=== PATIENT | female | born 1945 | race Caucasian/White ===

== ENCOUNTER 2018-08-29 10:44 | Inpatient (IN) ==
[2018-08-29] MEDS ORDERED: SOLU-MEDROL IV ONE (10:46)
[2018-08-29] MEDS ORDERED: DUONEB (A & A) INH ONE ×2 (10:46→11:11)
[2018-08-29 10:54] LABS: BLOOD TYPE ARTERIAL; HCO3-(ACT) 24.8 mmoll (20.0-26.0); METHB 0.5 % (0.0-1.5); O2(CT) 21.1 mL/dL (15.0-23.0); O2HB 95.2 % (95.0-99.0); PCO2(98.6) 43 mmHg (35-45); PO2(98.6) 89 mmHg (60-100); SAMPLE BLOOD; THB 15.7 g/dL (11.5-17.4); pH(98.6) 7.38 (7.35-7.45)
[2018-08-29 10:58] LABS: ALLEN TEST YES; MODALITY CANNULA
[2018-08-29 11:02] LABS: BASO# 0.04 X1000 (0.0-0.2); BASO% 0.6 % (0.0-0.8); EOS# 0.18 X1000 (0.0-0.7); EOS% 2.9 % (0.0-10.0); HEMATOCRIT 46.7 % (37.0-47.0); HEMOGLOBIN 15.5 g/dL (12.0-16.0); IMM GRAN# 0.01 X1000 (0.0-0.04); IMM GRAN% 0.2 % (0.0-0.5); LYMPH# 2.35 X1000 (1.2-3.4); MCH 32.6 PG (27-31); MCHC 33.2 g/dL (33-37); MCV 98.3 FL (81-99); MONO# 0.58 X1000 (0.11-0.59); MONO% 9.4 % (1.7-9.3); MPV 9.1 FL (7.4-10.4); NEUT# 3.02 X1000 (1.4-6.5); NEUT% 48.9 % (42.2-75.2); PLT 271 X1000 (130-400); RBC 4.75 XMIL (4.2-5.4); WBC 6.18 X1000 (4.8-10.8)
[2018-08-29 11:19] LABS: AGAP 16; ALBUMIN 4.7 g/dL (3.5-5.0); ALKALINE PHOSPHATASE 161 U/L (32-104); BUN 8 mg/dL (8-22); CALCIUM 10.1 mg/dL (8.8-10.2); CHLORIDE 99 mmol/L (98-107); COSMO 280; CREATININE 0.7 mg/dL (0.5-0.9); ESTIMATED GFR > 60; GLUCOSE 108 mg/dL (70-104); GOT 21 U/L (10-30); GPT 16 U/L (10-36); POTASSIUM 3.8 mmol/L (3.5-5.1); SODIUM 141 mmol/L (136-145); TCO2 26 mmol/L (25-35); TOTAL PROTEIN 9.6 g/dL (6.3-8.3)
--- NOTE | 2018-08-29 11:34 | PROVIDER DOCUMENTATION ---
This chart was entered by Nati Ibarra Scribe, acting as scribe for Lonnie Chase PA. HPI-Respiratory General - General Chief Complaint: Shortness of Breath Stated Complaint: sob Time Seen by Provider: 08/29/18 10:45 Source: patient, EMS Allergies/Adverse Reactions: Patient Allergies Allergy/AdvReac Type Severity Reaction Status Date / Time codeine Allergy Mild pain all Verified 02/04/17 18:07 over; "I THOUGHT I WAS GOING TO " Home Medications: Home Medication List Medication Instructions Recorded Confirmed Last Taken Type Alprazolam [Xanax] 0.25 mg PO DAILY PRN PRN 05/04/12 08/14/17 02/04/17 History Citalopram [Celexa] 40 mg PO DAILY 10/11/13 08/14/17 02/04/17 History Hydrocodone/APAP 5 mg/325 mg 1 each PO TID PRN 10/11/13 08/14/17 02/04/17 History [Weston-5] Lodine 500 mg PO BID 10/11/13 08/14/17 02/04/17 History ATORVAstatin [Lipitor] 20 mg PO HS #0 tablet 01/15/14 08/14/17 02/20/16 20:00 Rx Ropinirole [Requip] 1 mg PO QHS #0 tablet 01/15/14 08/14/17 1 Day Ago Rx ~02/03/17 Aspirin 81 mg PO BID 11/02/14 08/14/17 02/04/17 History Budesonide/Formoterol Fumarate 10.2 gm IH BID 11/02/14 08/14/17 02/04/17 History [Symbicort 160-4.5 Mcg Inhaler] Furosemide [Lasix] 40 mg PO DAILY 11/02/14 08/14/17 02/04/17 History Albuterol Sulfate [Ventolin] 5 mg IH DAILY 02/21/16 08/14/17 02/04/17 History Bupropion [Wellbutrin] 100 mg PO BID 02/21/16 08/14/17 02/04/17 History LISINOpril [Prinivil] 20 mg PO BID 02/21/16 08/14/17 02/04/17 History Losartan [Cozaar] 50 mg PO BID #60 tablet 06/30/16 08/14/17 Unknown Rx Carvedilol [Coreg] 25 mg PO BID 02/04/17 08/14/17 02/04/17 History Potassium Chloride [Klor-Con] 20 meq PO QAM 02/04/17 08/14/17 02/04/17 History Albuterol 2.5MG/Ipratrop 0.5MG 3 ml INH Q2-4H PRN PRN neb 08/17/17 Unknown Rx [Duoneb (A & A)] Azithromycin [Zithromax] 500 mg PO DAILY #3 tab 08/17/17 Unknown Rx CefDINIR [Omnicef] 300 mg PO BID #10 cap 08/17/17 Unknown Rx Methylprednisolone [Medrol Dosepak] 4 mg PO DIRECTED #1 pkg 08/17/17 Unknown Rx - History of Present Illness-Resp Nature of Presenting Problem: 72 y/o female presents to ED with SOB onset yesterday and acutely worsening just prior to arrival. Pt reports hx COPD and CHF. EMS states they administered 2 breathing treatments en route to ED. Pt is alert and oriented. Quality of Pain: reports: none Severity in ED: reports: severe Onset/Duration: reports: 24 hours ago Timing: reports: still present Context: reports: other (COPD/CHF) Exposure: reports: other (COPD/CHF) Cough Quality/Degree: reports: productive cough Episode Frequency: chronic episodes (COPD/CHF) Current Respiratory Medication Therapy: Initiated see nurses note Modifying Factors: improves with: nothing Associated Symptoms: reports: shortness of breath, short of breath Similar Symptoms Previously?: Yes Recently seen or treated by another doctor?: No Review of Systems - Adult - REVIEW OF SYSTEMS - ADULT Constitutional: denies: chills, fever Eyes: reports: no symptoms reported Ears, Nose, Mouth & Throat: reports: no symptoms reported Cardiovascular: denies: chest pain, palpitations Respiratory: reports: shortness of breath. denies: cough Gastrointestinal: denies: abdominal pain, diarrhea, nausea, vomiting Genitourinary: reports: no symptoms reported Musculoskeletal: denies: back pain, joint pain Integumentary: reports: no symptoms reported Neurological: denies: dizziness/vertigo, seizure Psychiatric: reports: no symptoms reported Endocrine: reports: no symptoms reported Hematologic/Lymphatic: reports: no symptoms reported Allergic/Immunologic: reports: no symptoms reported All Other Systems: Reviewed and Negative Past History - Adult - PAST MEDICAL HISTORY-ADULT Review of Records: reports: Old Records Reviewed, Nursing Assessment Review, Medications Reviewed Major Childhood Illnesses: reports: denies history Cardiovascular: reports: CAD, CHF, HTN, [place], pacemaker Respiratory: reports: COPD Gastrointestinal: reports: GERD Obstetrical/Gynecological: reports: denies history Genitourinary: reports: denies history Musculoskeletal: reports: denies history Neurological: reports: denies history Endocrine/Immune: reports: denies history Other Conditions: reports: denies history - PRIOR SURGERIES/PROCEDURES Surgical/Procedure History: reports: cholecystectomy, pacemaker, hysterectomy - IMMUNIZATION STATUS Childhood Immunizations: See Nurse Assessment Flu Vaccine: See Nurse Assessment - FAMILY HISTORY Family History: reviewed, not pertinent - SOCIAL HISTORY Smoking: less than 1 pack/day Provider spent 3-5 mins advising pt. on dangers of tobacco.: Discussed manners to quit use, and f/u contacts for add'l counseling. Substance Use: none/never Alcohol Use Frequency: never Living Situation: family Physical Exam-General - PHYSICAL EXAM-ADULT Initial Vital Signs Reviewed: Yes - CONSTITUTIONAL General Appearance: appears well, alert, no apparent distress - EYES Eyes: PERRL/EOMI, pink conjunctivae - HEAD, EARS, NOSE, MOUTH & THROAT HENMT: normocephalic/atraumatic, moist mucous membranes, normal ENT inspection - NECK Neck: non-tender, full range of motion - RESPIRATORY Respiratory: chest non-tender, rhonchi, wheezing - CARDIOVASCULAR Cardiovascular: normal peripheral pulses, regular rate, rhythm - GASTROINTESTINAL (ABDOMEN) Abdominal Exam: normal bowel sounds, non tender, soft - MUSCULOSKELETAL Back Exam: normal inspection, no CVA tenderness Extremity: normal range of motion, non-tender, normal gait - SKIN Integumentary: normal color, warm/dry - NEUROLOGIC Neurologic: grossly normal - PSYCHIATRIC Psych/Mental Status: normal mood/affect, normal thought content, normal thought process Progress - PLAN OF CARE/RESULTS Progress/Plan/Lab Results: Vital Signs - 8 hr 08/29/18 10:45 08/29/18 11:09 Temperature 98 F Pulse Rate 91 H 78 Respiratory Rate 22 22 Blood Pressure 180/121 164/109 O2 Sat by Pulse Oximetry 96 96 Laboratory Results - last 24 hr 08/29/18 08/29/18 08/29/18 10:28 10:50 10:50 WBC 6.18 RBC 4.75 Hgb 15.5 Hct 46.7 MCV 98.3 MCH 32.6 H MCHC 33.2 RDW Std Deviation 14.0 Plt Count 271 MPV 9.1 Immature Gran % (Auto) 0.2 Neut % (Auto) 48.9 Lymph % (Auto) 38.0 Cowley % (Auto) 9.4 H Eos % (Auto) 2.9 Baso % (Auto) 0.6 Immature Gran # (Auto) 0.01 Neut # (Auto) 3.02 Lymph # (Auto) 2.35 Cowley # (Auto) 0.58 Eos # (Auto) 0.18 Baso # (Auto) 0.04 Specimen Type ARTERIAL Sample Site R RADIAL pH 7.38 pCO2 43 pO2 89 HCO3 24.8 Base Excess 0.0 Oxyhemoglobin 95.2 ABG O2 Sat (Calculated) 21.1 ABG O2 Saturation 97.0 ABG Carboxyhemoglobin 1.40 ABG Methemoglobin 0.5 Lit Test YES A-a O2 Difference 114.0 Total Hemoglobin 15.7 Lactate 1.30 Liter Flow 4.0 Blood Gas Modality CANNULA FiO2 % 36.0 Sodium 141 Potassium 3.8 Chloride 99 Carbon Dioxide 26 Anion Gap 16 BUN 8 Creatinine 0.7 Estimated GFR/1.73 m2 > 60 BUN/Creatinine Ratio 11 Glucose 108 H Calculated Osmolality 280 Calcium 10.1 Total Bilirubin 0.40 AST 21 ALT 16 Alkaline Phosphatase 161 H Bic-U-Puyyovssnkf Pept Total Protein 9.6 H Albumin 4.7 Globulin 5.0 Albumin/Globulin Ratio 1.0 08/29/18 10:50 WBC RBC Hgb Hct MCV MCH MCHC RDW Std Deviation Plt Count MPV Immature Gran % (Auto) Neut % (Auto) Lymph % (Auto) Cowley % (Auto) Eos % (Auto) Baso % (Auto) Immature Gran # (Auto) Neut # (Auto) Lymph # (Auto) Cowley # (Auto) Eos # (Auto) Baso # (Auto) Specimen Type Sample Site pH pCO2 pO2 HCO3 Base Excess Oxyhemoglobin ABG O2 Sat (Calculated) ABG O2 Saturation ABG Carboxyhemoglobin ABG Methemoglobin Lit Test A-a O2 Difference Total Hemoglobin Lactate Liter Flow Blood Gas Modality FiO2 % Sodium Potassium Chloride Carbon Dioxide Anion Gap BUN Creatinine Estimated GFR/1.73 m2 BUN/Creatinine Ratio Glucose Calculated Osmolality Calcium Total Bilirubin AST ALT Alkaline Phosphatase Sgy-A-Fgngxgshebn Pept 1590 H Total Protein Albumin Globulin Albumin/Globulin Ratio Orders Category Date Time Status Saline Loc NOW Care 08/29/18 10:45 Completed CHEST-PORTABLE [RAD] Stat Exams 08/29/18 10:46 Taken ABG [RESP] Routine Lab 08/29/18 10:28 Completed CBC WITH DIFF [HEME] Stat Lab 08/29/18 10:50 Completed COMPREHENSIVE METABOLIC PANEL [CHEM] Stat Lab 08/29/18 10:50 Completed PRO B-NATRIURETIC PEPTIDE Stat Lab 08/29/18 10:50 Completed Albuterol 2.5MG/Ipratrop 0.5MG [Duoneb (A & A)] Med 08/29/18 10:46 Discontinued 3 ml INH NOW ONE Albuterol 2.5MG/Ipratrop 0.5MG [Duoneb (A & A)] Med 08/29/18 11:11 Discontinued 3 ml INH NOW ONE Methylprednisolone Sod Succ [Solu-Medrol] Med 08/29/18 10:46 Discontinued 60 mg IV NOW ONE Aerosol Treatments Routine Oth 08/29/18 10:46 Active Aerosol Treatments Routine Oth 08/29/18 11:12 Active Aerosol Treatments Stat Oth 08/29/18 10:46 Active Aerosol Treatments Stat Oth 08/29/18 11:12 Active EKG [EKG] Stat Ther 08/29/18 10:45 Ordered Result Diagrams: 08/29/18 10:50 08/29/18 10:50 - REASSESSMENT Reassessment #1 Time Reassessed: 11:33 Status: improving - CONSULTS/PCP/HOSPITALIST Notification #1 *Consult/PCP/Hospitalist*: Dr. Ennis Time Discussed: 11:11 Reason/Comments: COPD exacerbation Consult Disposition: Admit Departure - Departure Date of Disposition Decision: 08/29/18 Time of Disposition Decision: 11:11 DIAGNOSIS: COPD exacerbation, Tobacco abuse disorder Disposition: ADMITTED INPATIENT 09 Certified Medical Emergency: Emergent Condition: Stable Additional Freetext Instructions: ED Follow Up Instructions: You have been treated by a care provider in the Emergency Department. These instructions are being provided to you so you can have an understanding of how to care for yourself upon discharge. Upon discharge from the Emergency Department, you are responsible for making arrangements for follow-up care by a physician of your choice. Take all prescribed medications as directed. Return to the Emergency Department immediately for any new or worsening symptoms. You may call the Physician Referral phone number at [phone] to obtain a list of Physicians who are taking new patients. Discharge Education: Chronic Obstructive Pulmonary Disease Exacerbation, Easy- to-Read, Steps to Quit Smoking, [id number] - Critical Care Note This patient required my direct & personal management of CC.: No Attestation - Physician/ JACOB Attestation Patient care was provided by Advanced Practice Provider:: Yes Advanced Practice Provider:: Lonnie Chase Advanced Practice Provider documentation review:: The Mid-level provider documentation, treatment plan and medical decision making was reviewed by the physician who agrees with all treatment and medical decision making by the MLP. The physician spent face to face time with patient:: No Advanced Practice Provider documentation review:: Supervising physician onsite and consulted in the evaluation and care of this patient. The physician did not have a face to face encounter with the patient. This chart was documented by the indicated scribe, (Nati Ibarra Scribe) and accurately reflects the services I performed and decisions made by me, Lonnie Chase PA, as attested by the provider's signature.
--- NOTE | 2018-08-29 15:03 | Diag Imaging Result Doc PS360 ---
EXAM: CHEST-PORTABLE INDICATION: SOB TECHNIQUE: One view COMPARISON: 12/25/2017 FINDINGS: The lungs appear somewhat hyperinflated suggesting likely COPD, stable. The lungs are grossly clear. There is no discrete pleural fluid collection or pneumothorax. The cardiomediastinal silhouette and central vasculature are grossly unremarkable. The pacemaker/defibrillator is in stable position. IMPRESSION: Suggestion of likely COPD. No definite acute chest pathology. Electronically signed by Thom Horton 08/29/2018 3:00 PM
[2018-08-29] MEDS ORDERED: DUONEB (A & A) INH SCH (15:30)
[2018-08-29] MEDS: LASIX IV ONE ×2 (16:15→18:18)
[2018-08-29] MEDS ORDERED: MORPHINE IV PRN (18:02)
[2018-08-29] MEDS ORDERED: APRESOLINE IV PRN (18:17)
[2018-08-29] MEDS: DUONEB (A & A) INH SCH ×3 (18:26→22:54)
[2018-08-29] MEDS ORDERED: MORPHINE ONE (18:36)
--- NOTE | 2018-08-29 18:36 | HISTORY AND PHYSICAL ---
PRIMARY CARE PHYSICIAN: Dr. Griffith. CHIEF COMPLAINT: Shortness of breath. HISTORY OF PRESENTING ILLNESS: This is a 72-year-old female who presents to [facility] ER via EMS with complaints of shortness of breath that worsened yesterday and continued to worsen through this morning. When EMS arrived they gave her 2 breathing treatments en route to the emergency department. When she arrived to the emergency room she was saturating 96% on nasal cannula, her blood pressure was elevated at 180/121, she is now on a Venturi mask at oxygen flow rate of 8 saturating 91%. She has wheezing throughout her entire lung klein. Her chest x-ray is pending so she is being admitted for further evaluation and treatment. PAST MEDICAL HISTORY: COPD, CAD, hypertension, GERD, CHF. PAST SURGICAL HISTORY: Of a cholecystectomy, pacemaker and hysterectomy. FAMILY HISTORY: Reviewed and noncontributory. SOCIAL HISTORY: She currently lives with her daughter smokes 2 to 3 cigarettes a day has been a smoker for 50 years, denies any alcohol or illicit drug use. ALLERGIES: Codeine. HOME MEDICATIONS: A current list will need to be obtained and reviewed. I will place an order for nursing to update and confirm home medication and then we will restart as appropriate. LABORATORY DATA: Showed a white blood cell count of 6.18, hemoglobin 15.5, hematocrit 46.7, platelets 271,000. ABG showed a pH of 7.38, pCO2 43, PO2 89, bicarb 24.8 and that was on 4 L via nasal cannula. Sodium of 141, potassium 3.8, chloride 99, CO2 26, BUN of 8, creatinine 0.7, glucose 108, proBNP of 1590. Chest x-ray is pending. REVIEW OF SYSTEMS: She denied any fever, chills, blurred vision, dizziness, chest pain. She has had a nonproductive cough, shortness of breath. Denies any abdominal pain, constipation, diarrhea, burning or hurting with urination. PHYSICAL EXAMINATION: On arrival she had a temperature of 98 degrees, pulse 91, respirations 22, blood pressure was 180/121, saturating 96% on 4 L via nasal cannula, blood pressure currently is down to 164/109 but she saturating 91% on a 8 flow rate Venturi mask. GENERAL: This is a 72-year-old female who is sitting up in the bed answers questions appropriately but becomes very short of breath with 2 to 3 word sentences. HEENT: Normocephalic, atraumatic. Normal ENT inspection. Oropharynx and nares are clear. Pupils are equal, round, reactive to light and accommodation. Extraocular movements are intact. NECK: Normal inspection, normal range of motion. LUNGS: With wheezing throughout entire posterior lung klein, equal lung expansion, chest wall movement noted. O2 via Venturi mask in use at this time. HEART: Regular rate and rhythm. No murmurs, rubs, or gallops. ABDOMEN: Soft, nontender, nondistended. Bowel sounds are present x4 quadrants. MUSCULOSKELETAL: She has 5/5 strength x4 extremities. NEUROLOGICAL: The cranial nerves 2-12 appear grossly intact. ASSESSMENT: 1. An acute chronic obstructive pulmonary disease exacerbation. 2. Accelerated hypertension. 3. Gastroesophageal reflux disease. 4. Tobacco abuse. PLAN: She is being admitted to the medical unit, placed on telemetry, O2 per protocol, place on DuoNeb q.4 hours, Solu-Medrol 80 mg IV q.8, Rocephin 1 gram IV q.24, azithromycin 500 IV q.24., will do incentive spirometry, will need to have nursing update and confirm home medications and then we will review and restart as appropriate and will recheck a CBC, BMP in the a.m. Discussed smoking cessation with this patient who verbalizes understanding. Further orders after being seen by attending. Dictated by CHAD Deras for Anna Ennis MD cc: MD Anna Cano MD
[2018-08-29 18:53] LABS: BILIRUBIN URINE NEGATIVE (NEGATIVE); BLOOD URINE 1+ (NEGATIVE); CLARITY CLEAR (CLEAR); COLOR YELLOW; GLUCOSE URINE NEGATIVE (NEGATIVE); KETONE URINE 3+(Large) mg/dL (NEGATIVE); LEUKOCYTES URINE TRACE (NEGATIVE); NITRITE URINE NEGATIVE (NEGATIVE); PH URINE 6.5; UROBILINOGEN URINE NORMAL
[2018-08-29 18:54] LABS: URINE BACTERIA 1+ /HFP; URINE CAST NONE SEEN /LPF; URINE CRYSTAL NONE SEEN /HPF; URINE EPITHELIAL CELLS <10 /HPF (<10); URINE RBC <10 /HPF (<10); URINE SOURCE CATH; URINE WBC <10 /HPF (<10); URINE YEAST NONE SEEN /HPF
[2018-08-29] MEDS: ROCEPHIN 1 GM in NS 50 ML IV SCH (20:09)
[2018-08-29] MEDS: SOLU-MEDROL IV SCH (20:10)
[2018-08-29] MEDS: ZITHROMAX 500 MG/NS 500 MG/250 ML IVPB IV SCH (21:02)
[2018-08-29] MEDS: ZOFRAN IV PRN (22:26)
--- NOTE | 2018-08-29 23:52 | HISTORY AND PHYSICAL ---
ADDENDUM: The patient was personally seen by me face to face, and I fully agree with the assessment and plan of nurse practitioner, Elisabet Copeland. The patient presented to the emergency room with dyspnea and has been having wheezing. She is having acute COPD exacerbation, and her chest x-ray did not show any pneumonia. She will be given IV Solu-Medrol along with albuterol and Atrovent nebulization treatments. Furthermore, I am going to give her a dose of furosemide 40 mg IV to improve her fluid status and therefore to see if her breathing will get any better. She will be given ceftriaxone along with azithromycin intravenously for any associated bacterial infection. We will continue with her routine home medications and follow the hospital course. cc: Anna Ennis MD
[2018-08-30] MEDS: DUONEB (A & A) INH SCH ×6 (03:19→22:21)
[2018-08-30] MEDS: SOLU-MEDROL IV SCH ×3 (03:53→17:31)
--- NOTE | 2018-08-30 05:33 | EKG Report ---
Test Performed on : 08/29/2018 8:35:46 PM Test Reason : CP Blood Pressure : / mmHG Vent. Rate : 088 BPM Atrial Rate : 088 BPM P-R Int : 170 ms QRS Dur : 088 ms QT Int : 458 ms P-R-T Axes : 079 007 075 degrees QTc Int : 554 ms Normal sinus rhythm. Anteroseptal infarct (cited on or before 13-JAN-2014) Abnormal ECG When compared with ECG of 13-AUG-2017 16:26, Questionable change in initial forces of Anterior leads Nonspecific T wave abnormality no longer evident in Inferior leads T wave inversion no longer evident in Anterior leads QT has lengthened Confirmed by Lul Grossman MD ([id number]) on 09/13/2018 9:55:29 AM
[2018-08-30 06:37] LABS: BASO# 0.01 X1000 (0.0-0.2); BASO% 0.2 % (0.0-0.8); HEMATOCRIT 38.8 % (37.0-47.0); HEMOGLOBIN 12.8 g/dL (12.0-16.0); IMM GRAN# 0.01 X1000 (0.0-0.04); IMM GRAN% 0.2 % (0.0-0.5); LYMPH# 0.69 X1000 (1.2-3.4); MCH 32.8 PG (27-31); MCV 99.5 FL (81-99); MONO# 0.22 X1000 (0.11-0.59); MONO% 4.1 % (1.7-9.3); MPV 9.1 FL (7.4-10.4); NEUT# 4.38 X1000 (1.4-6.5); NEUT% 82.5 % (42.2-75.2); PLT 250 X1000 (130-400); RDW 14.1 % (11.5-14.5); WBC 5.31 X1000 (4.8-10.8)
[2018-08-30 06:53] LABS: AGAP 15; BUN 18 mg/dL (8-22); CALCIUM 9.1 mg/dL (8.8-10.2); CHLORIDE 100 mmol/L (98-107); COSMO 286; CREATININE 0.8 mg/dL (0.5-0.9); ESTIMATED GFR > 60; GLUCOSE 154 mg/dL (70-104); POTASSIUM 3.9 mmol/L (3.5-5.1); SODIUM 141 mmol/L (136-145); TCO2 26 mmol/L (25-35)
--- NOTE | 2018-08-30 12:35 | PROGRESS NOTE ---
DATE: 08/30/2018 SUBJECTIVE: Patient feels much better this morning. She still has some dyspnea, however. OBJECTIVE: Vital Signs: Temperature 97.6 degrees, pulse 79 per minute, respiratory rate 18 per minute, blood pressure 134/93, pulse oximetry 96% on 8 L of oxygen via Venturi mask. Cardiovascular System: First and second heart sounds are audible without any murmurs or gallops. Respiratory System: Bilateral lung air entry is moderately decreased with moderate expiratory wheezing present bilaterally on auscultation. Wheezing has significantly improved as compared to yesterday, however. Gastrointestinal: Abdomen is soft and nondistended. It is nontender on palpation. Normal bowel sounds are present. DIAGNOSTIC DATA: CBC is nondiagnostic. Basic metabolic panel showed glucose level of 154. Rest of the BMP was nondiagnostic. IMPRESSIONS: 1. Acute chronic obstructive pulmonary disease exacerbation. 2. Hypertension. 3. Dyslipidemia. PLAN: The patient's condition has significantly improved since yesterday. She will continue with methylprednisolone along with ceftriaxone and azithromycin intravenously. She will also continue with albuterol and Atrovent nebulization treatments and will also keep on giving her morphine sulfate 2 mg IV q.4 hours as needed for dyspnea and anxiety. She will be discharged on her routine home medications including Entresto, carvedilol, atorvastatin, and furosemide. Further recommendations will be given as per hospital course. cc: Anna Ennis MD
[2018-08-30] MEDS: LEXAPRO PO SCH (13:04)
[2018-08-30] MEDS: LASIX PO SCH (13:04)
[2018-08-30] MEDS: MORPHINE IV PRN ×2 (13:04→21:20)
[2018-08-30] MEDS: ROCEPHIN 1 GM in NS 50 ML IV SCH (21:05)
[2018-08-30] MEDS: NEURONTIN PO SCH (21:06)
[2018-08-30] MEDS: ZITHROMAX 500 MG/NS 500 MG/250 ML IVPB IV SCH (21:06)
[2018-08-30] MEDS: LIPITOR PO SCH (21:06)
[2018-08-30] MEDS: ENTRESTO 24 MG-26 MG TABLET PO SCH (21:06)
[2018-08-30] MEDS: COREG PO SCH (21:06)
[2018-08-31] MEDS: DUONEB (A & A) INH SCH ×6 (03:12→23:15)
[2018-08-31] MEDS: SOLU-MEDROL IV SCH ×3 (03:13→18:22)
[2018-08-31] MEDS: LEXAPRO PO SCH (09:41)
[2018-08-31] MEDS: NEURONTIN PO SCH ×2 (09:42→21:21)
[2018-08-31] MEDS: LASIX PO SCH (09:42)
[2018-08-31] MEDS: COREG PO SCH ×2 (09:42→21:21)
--- NOTE | 2018-08-31 09:47 | PROGRESS NOTE ---
DATE: 08/31/2018 SUBJECTIVE: The patient denies having any acute complaints this morning and feels much better as compared to yesterday. OBJECTIVE: Vital Signs: Temperature 97.3 degrees, pulse 61 per minute, respiratory rate 16 per minute, blood pressure 130/73, pulse oximetry 100% on 3 L of oxygen via nasal cannula. General: Patient is alert and oriented x3. She does not appear to be in any acute distress. Cardiovascular System: First and second heart sounds are audible without any murmurs or gallops. Respiratory System: Bilateral lung air entry is moderately decreased with bilateral expiratory wheezing present on auscultation, although, it has significantly improved as compared to yesterday. Gastrointestinal: Abdomen is soft and nondistended. It is nontender on palpation and normal bowel sounds are present. DIAGNOSTIC DATA: No new labs have been done. IMPRESSION: 1. Acute chronic obstructive pulmonary disease exacerbation. 2. Hypertension. 3. Dyslipidemia. PLAN: The patient's condition has significantly improved. She will continue with IV methylprednisolone along with ceftriaxone and azithromycin. She will also continue with bronchodilators via nebulization, and we keep her on morphine sulfate on as-needed basis for improvement of her dyspnea and anxiety. Her blood pressure has remained stable, and she will continue on her routine home medications. I believe she will be able to be discharged home in the next 1 to 2 days, if continues to improve the way she has been. cc: Anna Ennis MD
[2018-08-31] MEDS: MORPHINE IV PRN ×2 (09:53→18:29)
[2018-08-31] MEDS: ENTRESTO 24 MG-26 MG TABLET PO SCH ×2 (12:30→21:21)
[2018-08-31] MEDS: ROCEPHIN 1 GM in NS 50 ML IV SCH (21:18)
[2018-08-31] MEDS: LIPITOR PO SCH (21:21)
[2018-08-31] MEDS: ZITHROMAX PO SCH (21:21)
[2018-09-01] MEDS: SOLU-MEDROL IV SCH ×3 (01:56→20:57)
[2018-09-01] MEDS: DUONEB (A & A) INH SCH ×6 (03:23→23:00)
[2018-09-01] MEDS: COREG PO SCH ×2 (10:06→20:55)
[2018-09-01] MEDS: ENTRESTO 24 MG-26 MG TABLET PO SCH ×2 (10:06→22:35)
[2018-09-01] MEDS: LEXAPRO PO SCH (10:07)
[2018-09-01] MEDS: MORPHINE IV PRN ×2 (10:07→21:00)
[2018-09-01] MEDS: NEURONTIN PO SCH ×2 (10:07→20:54)
[2018-09-01] MEDS: LASIX PO SCH (10:08)
--- NOTE | 2018-09-01 11:32 | PROGRESS NOTE ---
DATE: 09/01/2018 SUBJECTIVE: Patient reports breathing better, but is still mildly short of breath. Reports not able to walk around yet. OBJECTIVE: Vital Signs: Temperature 98.0 degrees, heart rate 66, respiratory rate 18, blood pressure 104/72, O2 saturation 95% on 3 L nasal cannula. General examination: This is a 72-year- old female, lying in bed in no acute distress. Cardiovascular exam: S1, S2 heard. No murmurs, gallops, or rubs. Regular rate and rhythm. Respiratory exam: Clear bilaterally to auscultation. No work of breathing or using accessory muscles. Abdomen: Soft. Wheezing and coarse breath sounds in both pulmonary klein. Decreased breath sounds globally as well. The patient is not using any accessory muscles or having work of breathing. Abdomen: Soft, nontender to palpation. Bowel sounds present. No organomegaly. Extremities: No clubbing, cyanosis, or edema. Peripheral pulses present in both legs. Neurological exam: Patient is alert and oriented x3. Moves 4 extremities. LABORATORY DATA: None. ASSESSMENT AND PLAN: 1. Acute chronic obstructive pulmonary disease exacerbation. We will continue with DuoNeb every 4 hours as scheduled. Will add Spiriva to her current treatment, but considering that she has been on 3 days of high dose of Solu-Medrol 80 mg intravenous every 8 hours. We are going to wean off to 40 mg every 12 hours and we will go from there. We will add also Protonix to her current treatment considering that she is receiving high doses of steroids. 2. Hypertension. Blood pressure is under control. We will continue with the same medications. 3. Dyslipidemia. Will continue with home medications. We will continue with home medications. 4. Disposition: I think this patient will need to stay here probably at least a couple days more. We will continue with the same medications. cc: Andrew Quintana MD
[2018-09-01] MEDS: PROTONIX IV SCH (13:12)
[2018-09-01] MEDS: SODIUM CHLORIDE 0.9% INJ SCH (13:12)
[2018-09-01] MEDS: SPIRIVA INH SCH (15:16)
[2018-09-01] MEDS: ZITHROMAX PO SCH (20:54)
[2018-09-01] MEDS: ROCEPHIN 1 GM in NS 50 ML IV SCH (20:54)
[2018-09-01] MEDS: LIPITOR PO SCH (20:55)
[2018-09-02] MEDS: SOLU-MEDROL IV SCH ×2 (02:17→13:49)
[2018-09-02] MEDS: DUONEB (A & A) INH SCH ×6 (02:32→23:14)
[2018-09-02 06:20] LABS: HEMATOCRIT 37.3 % (37.0-47.0); HEMOGLOBIN 11.9 g/dL (12.0-16.0); IMM GRAN# 0.04 X1000 (0.0-0.04); IMM GRAN% 0.5 % (0.0-0.5); LYMPH# 1.16 X1000 (1.2-3.4); LYMPH% 15.9 % (20.5-51.1); MCH 31.9 PG (27-31); MCHC 31.9 g/dL (33-37); MONO# 0.38 X1000 (0.11-0.59); MONO% 5.2 % (1.7-9.3); MPV 9.3 FL (7.4-10.4); NEUT% 78.4 % (42.2-75.2); PLT 212 X1000 (130-400); RBC 3.73 XMIL (4.2-5.4); RDW 13.7 % (11.5-14.5); WBC 7.28 X1000 (4.8-10.8)
[2018-09-02 06:27] LABS: AGAP 8; BUN 30 mg/dL (8-22); CALCIUM 8.8 mg/dL (8.8-10.2); CHLORIDE 98 mmol/L (98-107); COSMO 282; CREATININE 0.7 mg/dL (0.5-0.9); ESTIMATED GFR > 60; GLUCOSE 107 mg/dL (70-104); POTASSIUM 4.1 mmol/L (3.5-5.1); SODIUM 138 mmol/L (136-145); TCO2 32 mmol/L (25-35)
[2018-09-02] MEDS: SPIRIVA INH SCH (08:06)
[2018-09-02] MEDS: NEURONTIN PO SCH ×2 (09:24→20:02)
[2018-09-02] MEDS: LEXAPRO PO SCH (09:24)
[2018-09-02] MEDS: MORPHINE IV PRN ×2 (09:24→19:38)
[2018-09-02] MEDS: COREG PO SCH ×2 (09:25→20:01)
[2018-09-02] MEDS: LASIX PO SCH (09:25)
[2018-09-02] MEDS: ENTRESTO 24 MG-26 MG TABLET PO SCH ×2 (09:25→20:01)
--- NOTE | 2018-09-02 11:33 | PROGRESS NOTE ---
DATE: 09/02/2018 SUBJECTIVE: The patient reports breathing a little bit better. The patient reports getting short of breath while she was walking with physical therapy. OBJECTIVE: Vital Signs: Temperature is 97.7 degrees, heart rate 72, respiratory rate 20, blood pressure 158/98, O2 saturation 94% on 2 L nasal cannula. General Examination: This is a 72-year- old, female lying in bed, in no acute distress. Cardiovascular Examination: S1 and S2 heard. No murmurs, gallops, or rubs. Regular rate and rhythm. Respiratory Examination: Mild wheezing and coarse breath sounds in both pulmonary bases. Patient is not using any accessory muscles or having work of breathing. Abdomen: Soft, nontender to palpation. Bowel sounds present. No organomegaly. Extremities: No clubbing, cyanosis, or edema. Peripheral pulses present in both legs. Neurological Examination: The patient is alert and oriented x3. Moves 4 extremities. Laboratory Data: CBC and BMP unremarkable. ASSESSMENT AND PLAN: 1. Acute chronic obstructive pulmonary disease exacerbation. Patient is on DuoNebs every 4 hours as scheduled because. She was not responding completely, we added Spiriva to her current treatment yesterday and she reported breathing a little bit better. The patient reports getting short of breath while she is working with physical therapy. She was encouraged to continue working with them. We had reduced Solu-Medrol yesterday to 40 mg intravenous every 12 hours. I think at discharge, she will be prescribed a Medrol Dosepak. We will continue also with Protonix while this patient is on steroids. 2. Hypertension. Blood pressure is under control. We will continue with the same management. 3. Dyslipidemia. We will continue home medications. 4. Physical deconditioning. Physical therapy has been consulted and working with this patient. 5. Disposition. I talked with the patient and she would really like to go home instead of going to rehab. We will see what physical therapy has to say. Patient encouraged to continue working with them. cc: Andrew Quintana MD
[2018-09-02] MEDS: PROTONIX IV SCH (13:49)
[2018-09-02] MEDS: SODIUM CHLORIDE 0.9% INJ SCH (13:49)
[2018-09-02] MEDS: ROCEPHIN 1 GM in NS 50 ML IV SCH (19:41)
[2018-09-02] MEDS: LIPITOR PO SCH (20:01)
[2018-09-02] MEDS: ZITHROMAX PO SCH (20:02)
[2018-09-03] MEDS: SOLU-MEDROL IV SCH ×3 (02:28→13:54)
[2018-09-03] MEDS: DUONEB (A & A) INH SCH ×6 (04:04→23:05)
[2018-09-03 06:57] LABS: BASO# 0.01 X1000 (0.0-0.2); BASO% 0.2 % (0.0-0.8); HEMATOCRIT 38.7 % (37.0-47.0); HEMOGLOBIN 12.4 g/dL (12.0-16.0); IMM GRAN# 0.02 X1000 (0.0-0.04); IMM GRAN% 0.3 % (0.0-0.5); LYMPH# 1.01 X1000 (1.2-3.4); MONO# 0.29 X1000 (0.11-0.59); MONO% 4.6 % (1.7-9.3); MPV 9.7 FL (7.4-10.4); NEUT# 4.99 X1000 (1.4-6.5); NEUT% 78.9 % (42.2-75.2); PLT 182 X1000 (130-400); RBC 3.87 XMIL (4.2-5.4); RDW 13.5 % (11.5-14.5); WBC 6.32 X1000 (4.8-10.8)
[2018-09-03 07:16] LABS: AGAP 9; BUN 31 mg/dL (8-22); CALCIUM 9.1 mg/dL (8.8-10.2); CHLORIDE 96 mmol/L (98-107); COSMO 282; CREATININE 0.7 mg/dL (0.5-0.9); ESTIMATED GFR > 60; GLUCOSE 126 mg/dL (70-104); SODIUM 137 mmol/L (136-145); TCO2 32 mmol/L (25-35)
[2018-09-03] MEDS: SPIRIVA INH SCH (07:20)
[2018-09-03] MEDS: LEXAPRO PO SCH (09:35)
[2018-09-03] MEDS: COREG PO SCH ×2 (09:35→21:18)
[2018-09-03] MEDS: ENTRESTO 24 MG-26 MG TABLET PO SCH ×2 (09:36→20:57)
[2018-09-03] MEDS: NEURONTIN PO SCH ×2 (09:36→20:57)
[2018-09-03] MEDS: LASIX PO SCH (09:36)
[2018-09-03] MEDS: PROTONIX IV SCH ×2 (09:36→11:12)
[2018-09-03] MEDS: MORPHINE IV PRN ×2 (09:36→20:57)
--- NOTE | 2018-09-03 14:31 | PROGRESS NOTE ---
DATE: 09/03/2018 SUBJECTIVE: Patient reports she had been working with physical therapy, although she gets a little bit short of breath. Denies any other complaints. OBJECTIVE: Vital Signs: Temperature 97.6 degrees, heart rate 76, respiratory rate 18, blood pressure 112/75, O2 saturation 96% on 4 L nasal cannula. General Examination: This is a chronically ill-looking, 72-year old female, lying in bed in no acute distress. HEENT: Head is normocephalic, atraumatic. Cardiovascular exam: S1, S2 heard. No murmurs, gallops, or rubs. Regular rate and rhythm. Respiratory exam: Mild wheezing and coarse breath sounds noted in both pulmonary bases. Patient is not using any accessory muscles or having work of breathing. Abdomen: Soft, nontender to palpation, nondistended. No signs of peritoneal irritation. Bowel sounds present. No organomegaly. Extremities: No clubbing, cyanosis, or edema. Peripheral pulses present in both legs. Neurological exam: Patient alert and oriented x3. Moves 4 extremities. LABORATORY DATA: CBC and BMP unremarkable with glucose a little bit elevated at 126. ASSESSMENT AND PLAN: 1. Acute chronic obstructive pulmonary disease exacerbation. The patient is on DuoNebs every 4 hours scheduled and also intravenous steroids as well. Spiriva has been added two days ago to her current treatment. At this point, she said that she is working with physical therapy feeling less short of breath. We have reduced the doses of Solu-Medrol to 40 mg intravenous every 12 hours. We will continue with the same management. 2. Hypertension. Blood pressure is under control. We will continue with the same medication. 3. Dyslipidemia. Patient is on home medications. We will continue with the same. 4. Physical deconditioning. Physical therapy working with this patient. 5. Disposition: I think this patient is getting slowly better. For tomorrow, we will see how this patient does. If she is breathing and walking more with physical therapy, then I think we can discharge her home with home health. Ideally she needs to go to rehab but she refused. cc: MD MARIO Chandler
[2018-09-03] MEDS: ZITHROMAX PO SCH (20:57)
[2018-09-03] MEDS: ROCEPHIN 1 GM in NS 50 ML IV SCH (20:58)
[2018-09-03] MEDS: LIPITOR PO SCH (20:58)
[2018-09-04] MEDS: SOLU-MEDROL IV SCH ×3 (01:56→13:54)
[2018-09-04] MEDS: DUONEB (A & A) INH SCH ×6 (02:56→23:01)
[2018-09-04 06:53] LABS: BASO# 0.01 X1000 (0.0-0.2); BASO% 0.2 % (0.0-0.8); HEMATOCRIT 38.6 % (37.0-47.0); HEMOGLOBIN 12.4 g/dL (12.0-16.0); IMM GRAN# 0.02 X1000 (0.0-0.04); IMM GRAN% 0.3 % (0.0-0.5); LYMPH% 15.3 % (20.5-51.1); MCH 32.1 PG (27-31); MCHC 32.1 g/dL (33-37); MONO# 0.27 X1000 (0.11-0.59); MONO% 4.6 % (1.7-9.3); MPV 9.3 FL (7.4-10.4); NEUT% 79.6 % (42.2-75.2); PLT 174 X1000 (130-400); RBC 3.86 XMIL (4.2-5.4); RDW 13.4 % (11.5-14.5)
[2018-09-04 07:15] LABS: AGAP 8; BUN 29 mg/dL (8-22); CALCIUM 9.2 mg/dL (8.8-10.2); CHLORIDE 94 mmol/L (98-107); COSMO 280; CREATININE 0.6 mg/dL (0.5-0.9); ESTIMATED GFR > 60; GLUCOSE 106 mg/dL (70-104); POTASSIUM 4.1 mmol/L (3.5-5.1); SODIUM 137 mmol/L (136-145); TCO2 34 mmol/L (25-35)
[2018-09-04] MEDS: SPIRIVA INH SCH (07:43)
[2018-09-04] MEDS: MORPHINE IV PRN ×2 (08:49→20:24)
[2018-09-04] MEDS: LASIX PO SCH (08:50)
[2018-09-04] MEDS: COREG PO SCH ×2 (08:50→22:43)
[2018-09-04] MEDS: LEXAPRO PO SCH (08:50)
[2018-09-04] MEDS: NEURONTIN PO SCH ×2 (08:50→20:25)
[2018-09-04] MEDS: ENTRESTO 24 MG-26 MG TABLET PO SCH ×2 (08:50→20:25)
--- NOTE | 2018-09-04 11:02 | PROGRESS NOTE ---
DATE: 09/04/2018 SUBJECTIVE: Patient denies having any acute complaints this morning. She still has some wheezing and has generalized weakness. OBJECTIVE: Vitals: Temperature 97.9 degrees, pulse 63 per minute, respiratory rate is 17 per minute, blood pressure 114/79, pulse oximetry 99% on 4 L of oxygen via nasal cannula. General: The patient is alert and oriented x3. She does not appear to be in any acute distress. Cardiovascular System: First and second heart sounds are audible without any murmurs or gallops. Respiratory System: Bilateral lung air entry is moderately decreased with mild expiratory wheeze present bilaterally on auscultation. Gastrointestinal System: Patient is morbidly obese. Abdomen is soft and nontender on palpation. Normal bowel sounds are present. DIAGNOSTIC DATA: CBC is nondiagnostic and basic metabolic panel is also within normal limits except for BUN of 29. IMPRESSION: 1. Acute chronic obstructive pulmonary disease exacerbation. 2. Hypertension. 3. Dyslipidemia. PLAN: The patient's COPD exacerbation is slowly and gradually getting better. Her methylprednisolone dosage has been decreased to 40 mg IV q.12 hours, which will be continued for now. She will continue with bronchodilators as well, and I am going to repeat an ABG tomorrow morning on room air to assess her oxygen status. Also, I am going to repeat a chest x-ray tomorrow morning to make sure she does not have any associated pneumonia. She will continue her routine medications for hypertension and dyslipidemia, since her blood pressure has been within normal range. She will also continue with physical therapy because she has been having generalized deconditioning. She can probably be discharged home in the next 3 to 4 days if continues to get better. cc: Anna Ennis MD
--- NOTE | 2018-09-04 11:33 | Diag Imaging Result Doc PS360 ---
EXAM: CHEST-PORTABLE HISTORY: COPD Exacerbation; Dyspnea TECHNIQUE: Single view of the chest was performed portably. COMPARISON: 08/29/2018 FINDINGS: The cardiomediastinal silhouette is within normal limits. The pulmonary vasculature is not congested. No infiltrate, effusion, or pneumothorax is appreciated. 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 There is pulmonary emphysema and mild interstitial fibrosis. IMPRESSION: No acute cardiopulmonary abnormality is identified. Pulmonary emphysema with mild interstitial fibrosis. Electronically signed by Jennifer Padilla 09/04/2018 11:30 AM
[2018-09-04] MEDS: PROTONIX IV SCH (12:11)
[2018-09-04] MEDS: ROCEPHIN 1 GM in NS 50 ML IV SCH (20:24)
[2018-09-04] MEDS: ZITHROMAX PO SCH (20:25)
[2018-09-04] MEDS: LIPITOR PO SCH (20:25)
[2018-09-05] MEDS: SOLU-MEDROL IV SCH ×2 (01:27→13:49)
[2018-09-05] MEDS: DUONEB (A & A) INH SCH ×6 (02:51→22:57)
[2018-09-05 05:23] LABS: BE 14.1 mmoll (-3.0-3.0); BLOOD TYPE ARTERIAL; HCO3-(ACT) 35.9 mmoll (20.0-26.0); O2(CT) 17.3 mL/dL (15.0-23.0); O2HB 95.1 % (95.0-99.0); PO2(98.6) 93 mmHg (60-100); SAMPLE BLOOD; THB 12.9 g/dL (11.5-17.4); pH(98.6) 7.43 (7.35-7.45)
[2018-09-05 05:28] LABS: ALLEN TEST NO; MODALITY CANNULA; PCO2(98.6) 62 mmHg (35-45)
[2018-09-05 06:01] LABS: BLOOD TYPE ARTERIAL; HCO3-(ACT) 35.4 mmoll (20.0-26.0); METHB 0.9 % (0.0-1.5); O2(CT) 14.3 mL/dL (15.0-23.0); SAMPLE BLOOD; SAO2 81.4 % (95.0-100.0); THB 12.8 g/dL (11.5-17.4); pH(98.6) 7.44 (7.35-7.45)
[2018-09-05 06:03] LABS: MODALITY ROOM AIR; O2HB 79.6 % (95.0-99.0); PCO2(98.6) 60 mmHg (35-45); PO2(98.6) 42 mmHg (60-100)
[2018-09-05 06:04] LABS: ALLEN TEST NO
[2018-09-05 06:31] LABS: AGAP 6; BUN 31 mg/dL (8-22); CALCIUM 8.9 mg/dL (8.8-10.2); CHLORIDE 93 mmol/L (98-107); COSMO 277; CREATININE 0.7 mg/dL (0.5-0.9); ESTIMATED GFR > 60; GLUCOSE 107 mg/dL (70-104); POTASSIUM 4.1 mmol/L (3.5-5.1); SODIUM 135 mmol/L (136-145); TCO2 36 mmol/L (25-35)
[2018-09-05] MEDS: SPIRIVA INH SCH (07:31)
[2018-09-05] MEDS: MORPHINE IV PRN ×2 (08:24→20:43)
[2018-09-05] MEDS: ENTRESTO 24 MG-26 MG TABLET PO SCH ×2 (08:25→20:40)
[2018-09-05] MEDS: LEXAPRO PO SCH (08:25)
[2018-09-05] MEDS: ZOFRAN IV PRN (08:25)
[2018-09-05] MEDS: COREG PO SCH ×2 (08:25→20:39)
[2018-09-05] MEDS: LASIX PO SCH (08:25)
--- NOTE | 2018-09-05 11:24 | PROGRESS NOTE ---
DATE: 09/05/2018 SUBJECTIVE: The patient denies having any new complaints. She still has generalized weakness but does report that her breathing is getting better. OBJECTIVE: Vital Signs: Temperature 97.8 degrees, pulse 67 per minute, respiratory rate 16 per minute, blood pressure 134/67, pulse ox 98% on 3 L of oxygen via nasal cannula. General: Patient is alert and oriented x3. She does not appear to be in any acute distress. Cardiovascular System: First and second heart sounds are audible without any murmurs or gallops. Respiratory System: No respiratory distress noted. Bilateral lung air entry is moderately decreased with mild expiratory wheeze present on auscultation. No rales are present however. Gastrointestinal System: Abdomen is soft and nontender on palpation. Normal bowel sounds are present. DIAGNOSTIC DATA: Blood gas obtained this morning on 4 L of oxygen showed pH of 7.43, pCO2 of 62, and PO2 of 93. We repeated blood gas on room air, and that showed pH of 7.44, pCO2 of 60, and PO2 of 42. Another blood gas on 2 L of oxygen has been ordered for later today. IMPRESSION: 1. Acute chronic obstructive pulmonary disease exacerbation with hypoxemia. 2. Hypertension. 3. Dyslipidemia. PLAN: The patient's COPD exacerbation is slowly and gradually getting better. I am going to, therefore, decrease the dose of methylprednisolone to 20 mg every 12 hours. She will be kept on bronchodilators and broad-spectrum antibiotics, although there is no pneumonia. The patient will also be kept on GI prophylaxis, and we are going to continue with her routine medications for her blood pressure and dyslipidemia. She will be kept on supplemental oxygen, and I am going to see if her oxygen status is okay with 2 L of oxygen on an ABG, so that she can be planned to be discharged on 24-hour home oxygen. We have requested her to have a transfer to rehab early next week, however, since she has been having generalized weakness. cc: Anna Ennis MD
[2018-09-05 11:38] LABS: BE 15.4 mmoll (-3.0-3.0); BLOOD TYPE ARTERIAL; HCO3-(ACT) 36.8 mmoll (20.0-26.0); METHB 0.7 % (0.0-1.5); O2(CT) 15.2 mL/dL (15.0-23.0); O2HB 92.8 % (95.0-99.0); PO2(98.6) 67 mmHg (60-100); SAMPLE BLOOD; SAO2 94.5 % (95.0-100.0); THB 11.6 g/dL (11.5-17.4); pH(98.6) 7.43 (7.35-7.45)
[2018-09-05 11:43] LABS: ALLEN TEST YES; MODALITY CANNULA
[2018-09-05 11:44] LABS: PCO2(98.6) 64 mmHg (35-45)
[2018-09-05] MEDS: PROTONIX IV SCH (13:48)
[2018-09-05] MEDS: SODIUM CHLORIDE 0.9% INJ SCH (13:48)
[2018-09-05] MEDS: NEURONTIN PO SCH ×2 (13:49→20:39)
[2018-09-05] MEDS: LIPITOR PO SCH (20:39)
[2018-09-05] MEDS: ZITHROMAX PO SCH (20:39)
[2018-09-05] MEDS: ROCEPHIN 1 GM in NS 50 ML IV SCH (20:39)
[2018-09-06] MEDS: SOLU-MEDROL IV SCH (02:24)
[2018-09-06] MEDS: DUONEB (A & A) INH SCH ×6 (03:10→23:10)
[2018-09-06] MEDS: SPIRIVA INH SCH (07:51)
[2018-09-06] MEDS: NEURONTIN PO SCH ×2 (09:49→20:38)
[2018-09-06] MEDS: LEXAPRO PO SCH (09:49)
[2018-09-06] MEDS: ENTRESTO 24 MG-26 MG TABLET PO SCH ×2 (09:49→20:38)
[2018-09-06] MEDS: PREDNISONE PO SCH (09:49)
[2018-09-06] MEDS: COREG PO SCH ×2 (09:49→20:38)
[2018-09-06] MEDS: LASIX PO SCH (09:49)
[2018-09-06] MEDS: MORPHINE IV PRN ×2 (11:52→20:40)
[2018-09-06] MEDS: PROTONIX IV SCH (11:53)
[2018-09-06] MEDS: SODIUM CHLORIDE 0.9% INJ SCH (11:53)
--- NOTE | 2018-09-06 15:27 | PROGRESS NOTE ---
DATE: 09/06/2018 SUBJECTIVE: The patient denies having any acute complaint this morning and feels much, much better. OBJECTIVE: Vital signs: Temperature is 97.4 degrees, pulse 60 per minute, respiratory rate 15 per minute, blood pressure 129/82, pulse oximetry 96% on 2 L of oxygen by nasal cannula. General: The patient is alert and oriented x3. She does not appear to be in any acute distress. Cardiovascular: First and second heart sounds are heard without any murmurs, rubs or gallops. Respiratory: Bilateral lung air entry is mildly decreased, but there are on rales or rhonchi present on auscultation. The wheeze present yesterday has completely resolved. Gastrointestinal: Abdomen is soft and nondistended. It is nontender on palpation. Normal bowel sounds are present. DIAGNOSTIC DATA: No new labs have been done. IMPRESSION: 1. Acute chronic obstructive pulmonary disease exacerbation that has now significantly improved. 2. Hypoxemia secondary to number 1. 3. Hypertension and dyslipidemia, both of which are currently stable. 4. Generalized deconditioning. PLAN: The patient's COPD exacerbation has improved, and therefore I have discontinued IV methylprednisolone. She has been started on prednisone 20 mg daily that will be tapered off gradually. She will continue with nebulization treatments, bronchodilators, and I am also going to discontinue her IV ceftriaxone along with IV azithromycin. Instead, she will take azithromycin 250 mg orally once daily for the next several days. She will continue with supplemental oxygen for her hypoxemia. Her antihypertensive and lipid lowering medications will also be continued. Furthermore, she will continue with physical therapy. We will try to see if we can find a place for her to go for inpatient rehab in the next several days. cc: Anna Ennis MD
[2018-09-06] MEDS: ZITHROMAX PO SCH (20:37)
[2018-09-06] MEDS: LIPITOR PO SCH (20:37)
[2018-09-07] MEDS: DUONEB (A & A) INH SCH ×6 (03:22→22:46)
[2018-09-07] MEDS: PROTONIX PO SCH (06:36)
[2018-09-07] MEDS: SPIRIVA INH SCH (07:50)
[2018-09-07] MEDS: LEXAPRO PO SCH (09:39)
[2018-09-07] MEDS: ENTRESTO 24 MG-26 MG TABLET PO SCH ×2 (09:39→20:31)
[2018-09-07] MEDS: PREDNISONE PO SCH (09:39)
[2018-09-07] MEDS: LASIX PO SCH (09:40)
[2018-09-07] MEDS: NEURONTIN PO SCH ×2 (09:40→20:31)
[2018-09-07] MEDS: COREG PO SCH ×2 (09:40→20:32)
[2018-09-07] MEDS: MORPHINE IV PRN (09:54)
[2018-09-07] MEDS ORDERED: NORCO-5 PO PRN (16:15)
[2018-09-07] MEDS ORDERED: LOVENOX SUBQ SCH (16:30)
--- NOTE | 2018-09-07 16:40 | PROGRESS NOTE ---
DATE: 09/07/2018 SUBJECTIVE: The patient has no major complaints. OBJECTIVE: Vital Signs: Blood pressure is 104/64, heart rate of 87, respiratory rate of 20, temperature 97.9 degrees, oxygen saturation is 93% on 2 liters. Cardiovascular: Regular rate and rhythm. Pulmonary: Bilateral breath sounds diminished, but she had good breath sounds throughout. Gastrointestinal: Soft, nontender, nondistended. Bowel sounds are positive. LABORATORY DATA: Sodium 135, really no new data. ASSESSMENT AND PLAN: 1. Acute chronic obstructive pulmonary disease exacerbation. We will continue breathing treatments. She is now on prednisone, seems to be stable. Probably taper in another couple of days if she is doing okay. Continue breathing treatments. She is on azithromycin alone. 2. Hypoxemia. We will continue her O2 and follow. 3. Hypertension, stable on current medications. DISPOSITION: She is awaiting rehab when stabilized. Disposition is stable. Continue to follow closely. I am going to stop her morphine. We will give her enoxaparin for DVT prophylaxis. cc: Nadeem Seaman MD
[2018-09-07] MEDS: ZITHROMAX PO SCH (20:31)
[2018-09-07] MEDS: LIPITOR PO SCH (20:31)
[2018-09-08] MEDS: DUONEB (A & A) INH SCH ×3 (03:26→12:08)
[2018-09-08] MEDS: PROTONIX PO SCH (06:01)
[2018-09-08] MEDS: SPIRIVA INH SCH (07:30)
--- NOTE | 2018-09-08 11:39 | DISCHARGE SUMMARY ---
ADMISSION DATE: 08/29/2018 DISCHARGE DATE: 09/08/2018 PRIMARY CARE PHYSICIAN: Dr. Mary Griffith. ADMISSION DIAGNOSES: 1. An acute chronic obstructive pulmonary disease exacerbation. 2. Accelerated hypertension. 3. Gastroesophageal reflux disease. 4. Tobacco abuse. DISCHARGE DIAGNOSES: 1. An acute chronic obstructive pulmonary disease exacerbation, improved. 2. Hypoxemia. 3. Hypertension. SUMMARY OF FINDINGS: This is a 72-year-old female who presented to the ER via EMS with complaints of shortness of breath that worsened. When EMS arrived, they gave her 2 breathing treatments en route to the emergency room. When she arrived, she was saturating 96% on her nasal cannula. Blood pressure was elevated at 180/121. She was placed on a Venturi mask with a flow rate of 8, sating 91%. Chest x-ray showed suggestion of likely COPD. She was admitted, placed on O2, DuoNeb q.4, Solu-Medrol that has been weaned as she has improved, Rocephin and azithromycin IV. We did incentive spirometry. We discussed smoking cessation with her. Her repeat chest x-ray on 09/04/2018 showed no acute cardiopulmonary abnormality identified. Pulmonary emphysema with mild interstitial fibrosis. She was taken off of her IV antibiotics and changed over to p.o. azithromycin alone and was also changed over to p.o. prednisone. She is sating 96% to 98% on O2 via 2 L of nasal cannula, and so it is felt that she can safely be discharged to rehab today. DISCHARGE MEDICATIONS: 1. Atorvastatin 20 mg p.o. at bedtime. 2. Azithromycin 250 mg p.o. at bedtime x5 days. 3. Coreg 25 mg p.o. b.i.d. 4. Escitalopram 10 mg p.o. daily. 5. Lasix 40 mg p.o. daily. 6. Gabapentin 600 mg p.o. b.i.d. 7. Entresto 24/26 mg p.o. b.i.d. 8. Ventolin 5 mg inhaler daily. 9. Symbicort 10.2 g inhalation b.i.d. 10. A Medrol Dosepak to take as directed. FOLLOWUP: She will follow up with her primary care physician once she has completed her rehab stay. Dictated by CHAD Deras for Nadeem Seaman MD cc: CHAD Deras MD Bhavna Gowda, MD
[2018-09-08] MEDS: NEURONTIN PO SCH (13:31)
[2018-09-08] MEDS: LASIX PO SCH (13:32)
[2018-09-08] MEDS: COREG PO SCH (13:32)
[2018-09-08] MEDS: LEXAPRO PO SCH (13:32)
[2018-09-08] MEDS: ENTRESTO 24 MG-26 MG TABLET PO SCH (13:32)
[2018-09-08] MEDS: PREDNISONE PO SCH (13:33)
--- NOTE | 2018-09-08 14:42 | DISCHARGE SUMMARY ---
ADMISSION DATE: 08/29/2018 DISCHARGE DATE: 09/08/2018 ADDENDUM REPORT SUBJECTIVE: Day of discharge, she is looking well. No major complaints. OBJECTIVE: Vital Signs: Her blood pressure is 111/79, heart rate of 63, respiratory 18, temperature 98 degrees. She has been afebrile pretty much since she has been here. Cardiovascular: Regular rate and rhythm. Pulmonary: Occasional end-expiratory wheeze, but overall stable. PLAN: Discharge today to rehab, COPD exacerbation and will complete her course of azithromycin and prednisone. She is hypoxic, so will need O2 and she may need to be set up with O2. DISCHARGE MEDICATION LIST: Per discharge summary. TIME SPENT: [id number] encounter note with Elisabet Elise. 32 minute discharge. cc: Nadeem Seaman MD
[2018-09-08 15:21] VITALS: BP 119/69
== END 2018-09-08 16:11 | DRG 191 ==
LOC: P.ED 10:44 → SUATTDRO 15:26 → P.EDIPHOLD 15:26
PROVIDERS: ATTEND Internal Medicine
CPT/HCPCS: 71010; 71045; 80048; 80053; 81001; 82805; 83880; 85025; 87088; 93005; 93010; 94640; 94761; 94799; 96374; 97163; 97530; 99285; A9270; C9113; J0456; J0696; J1650; J1940; J2270; J2405; J2920; J2930; J7506; J7512; S0164